=== PATIENT | male | born 1965 | race Caucasian/White ===

== ENCOUNTER 2021-02-05 05:20 | Emergency (ER) | payer MEDICARE ==
[2021-02-05 06:34] LABS: BASOPHIL 0.5 % (0-2); EOSINOPHIL 5.7 % (0-5); HCT 40.5 % (42.0-52.0); HGB 13.4 g/dl (13.2-18.0); LYMPHOCYTE 25.3 % (15-48); MCH 30.6 pg (25.0-31.0); MCHC 33.1 g/dL (32.0-36.0); MCV 92.5 fL (78.0-100.0); MONOCYTE 6.9 % (0-12); MPV 9.7 fL (6.0-9.5); NEUTROPHIL 61.1 % (41-80); NRBC 0; PLT 313 K/uL (150-400); RBC 4.38 M/uL (4.70-6.00); RDW 12.4 % (11.5-14.0); WBC 10.9 K/uL (4.0-10.5)
[2021-02-05 06:38] LABS: INR 1.02 (0.9-1.2); PROTHROMBIN TIME 12.8 SECONDS (11.8-13.4)
[2021-02-05 06:49] LABS: PRO-BNP 95 pg/mL (<125)
[2021-02-05 06:51] LABS: ALBUMIN 3.6 g/dL (3.4-5.0); BILIRUBIN - TOTAL 0.3 mg/dL (0.2-1.0); FT4 (FREE T4) 1.1 ng/dL (0.76-1.46); GLOBULIN (CALCULATION) 4.2 g/dL; TOTAL PROTEIN 7.8 g/dL (6.4-8.2)
[2021-02-05 08:57] LABS: BILIRUBIN NEGATIVE (NEGATIVE); BLOOD NEGATIVE Ery/uL (NEGATIVE); CLARITY CLEAR (CLEAR); COLOR YELLOW (YELLOW); GLUCOSE (U) NORMAL (NORMAL); LEUKOCYTES NEGATIVE Leu/uL (NEGATIVE); NITRITE NEGATIVE (NEGATIVE); PROTEIN NEGATIVE (NEGATIVE); SPECIFIC GRAVITY 1.025 (1.001-1.030); UROBILINOGEN 0.2 mg/dL (0.2-1.0); pH 5.5 (5.0-9.0)
[2021-02-05] MEDS ORDERED: COZAAR50 MG PO (11:18)
== END 2021-02-05 12:07 | disposition home or self-care (01) ==
LOC: FER 05:20
PROVIDERS: Emergency Medicine
DX: I10 Essential (primary) hypertension (principal); E03.9 Hypothyroidism, unspecified; Z79.899 Other long term (current) drug therapy; Z79.890 Hormone replacement therapy
CPT/HCPCS: 36415; 70450; 80053; 81003; 83735; 83880; 84439; 84443; 84484; 85025; 85610; 85730; 93005; J0360; J3490